=== PATIENT | female | born 2000 | race Two or more races ===

== ENCOUNTER 2025-03-08 12:46 | Emergency (ER) | payer MEDICAID, SELFPAY ==
[2025-03-08 12:47] VITALS: BMI 21.7
[2025-03-08 13:04] VITALS: BP 115/77; PULSE 108; RESP 20; TEMP 37.1; O2SAT 99
[2025-03-08] MEDS: ACETAMINOPHEN 500 MG TABLET 1000 MG PO (13:24)
[2025-03-08] MEDS: ONDANSETRON ODT 4 MG TABRAP PO (13:25)
--- NOTE | 2025-03-08 13:35 | PD.EDFEVER ---
ED Fever RME/HPI General Chief Complaint: Fever Stated Complaint: FEVER, N/V; 11 WKS OB Time Seen by Provider: 03/08/25 13:01 Arrival date/time: 03/08/25 12:46 This is a 24-year-old female that comes into the emergency room with complaints of nausea vomiting and fever. Patient also complains of lower back pain. Patient denies abdominal pain. Patient reports that she is approximately 11 weeks patient denies any urinary symptoms. 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 Patient denies any trauma to her back. Patient denies any vaginal bleeding. Related Data Previous Rx's ?Medication ?Instructions ?Recorded ibuprofen 400 mg tablet 400 mg PO Q6H PRN fever or pain 05/07/19 #30 tabs tramadol 50 mg tablet 50 mg PO BID PRN pain #10 tabs 05/31/22 ondansetron 4 mg disintegrating 4 mg PO Q6H PRN nausea and 03/08/25 tablet vomiting #10 tabs Allergies Allergy/AdvReac Type Severity Reaction Status Date / Time No Known Allergies Allergy Verified 03/08/25 12:50 Review of Systems Review of Systems Systems Reviewed: All systems reviewed, normal except as documented Past Medical History Surgical History OTHER SURGICAL HX: Denies Social History SOCIAL: Denies SMOKING STATUS: Never smoker Past Medical History Comments PMH COMMENT: Denies Physical Exam Narrative Physical exam: VITAL SIGNS: Reviewed. GENERAL APPEARANCE: Alert and interactive, follows commands, no acute distress HEAD AND FACE: Non-traumatic. ENT: PERRL, conjuctiva pink and clear, eyelid no trauma, Mucous membrane moist. NECK: Supple, nontender, no nuchal rigidity. CHEST: No tenderness, no crepitus, no paradoxical movement, no retractions. LUNGS: breathing even and unlabored HEART: Regular rate, cap refill less than 2 seconds ABDOMEN: Soft, nondistended, no guarding, nontender NEUROLOGICAL: Gross motor function intact sensory function intact, Appropriate for age. MUSCULOSKELETAL: low back nontender, full range of motion. no midline tenderness, no meningismus, no step offs EXTREMITIES: No redness no swelling no skin breakdown on bilateral foot and leg. Distal neurovascular status intact bilateral foot SKIN: Color pink, dry Course Quality Measures none Orders Category Date Time Status US OB <= 14 weeks fetus Stat Exams 03/08/25 15:25 Completed Beta HCG,Quantitative Stat Lab 03/08/25 15:40 Completed CBC Stat Lab 03/08/25 15:40 Completed COVID-19 Antigen (In-House) Stat Lab 03/08/25 13:26 Completed Comprehensive Metabolic Panel Stat Lab 03/08/25 15:40 Completed HCG Qualitative,Urine Stat Lab 03/08/25 13:41 Completed Influenza A & B Rapid Panel Stat Lab 03/08/25 13:26 Completed Urinalysis, C/S if Indicated Stat Lab 03/08/25 13:41 Completed Acetaminophen Tab [Tylenol ES Tab] Med 03/08/25 13:16 Discontinued 1,000 mg PO X1 ONE Ondansetron Odt [Zofran Odt] Med 03/08/25 13:15 Discontinued 4 mg PO X1 ONE Vital Signs Vital signs: Vital Signs Temperature 98.7 F 03/08/25 13:04 Pulse Rate 108 H 03/08/25 13:04 Respiratory Rate 20 03/08/25 13:04 Blood Pressure 115/77 03/08/25 13:04 Pulse Oximetry (%) 99 03/08/25 13:04 Oxygen Delivery Method Room Air 03/08/25 13:04 Fever MDM Narrative MDM Narrative:: COVID, flu negative. Patient UA had some red blood cells but no leukocyte esterase patient not having any urinary symptoms. I told patient to follow-up with [facility] for hematuria. I also explained to patient that if she does heavy lifting at work she may need to talk to her primary doctor about possibly going on light duty. Will take her off today and tomorrow. I will prescribe Zofran for nausea. Patient feels comfortable plan of care. Patient told to follow-up with primary provider in 1 to 2 days come back to emergency room if symptoms change or worsen us : Findings: A normal shaped single intrauterine gestation is present in the uterus. CRL 2.4 cm corresponds to 9 weeks 1 day gestational age Cardiac motion 167 bpm Ultrasonographic survey of visible and placental structures unremarkable. Amniotic fluid volume appears appropriate for this estimated gestational age. Ovaries obscured by bowel gas IMPRESSION: Viable intrauterine gestation 9 weeks 1 day. Patient data External records reviewed:: [facility] previous records Clinical information provided by:: patient Social determinants that could affect healthcare access:: none Patient has the following chronic illnesses:: none How is presenting disease/condition affected by chronic disease/condition?: no chronic disease Evaluation data The following diagnostics were reviewed and interpreted by me:: lab results Lab and/or radiology exams considered but not ordered:: none Interpretation Summary: see note Medications / Prescriptions Medications or Prescriptions considered but not ordered:: none Medication administrations:: Medication Administration History Discontinued Medications Acetaminophen (Acetaminophen 500 Mg Tablet) 1,000 mg PO X1 ONE Stop: 03/08/25 13:17 Last Admin: 03/08/25 13:24 Dose: 1,000 mg Documented By: JAYDEN Ondansetron HCl (Ondansetron Odt 4 Mg Tabrap) 4 mg PO X1 ONE; Protocol Stop: 03/08/25 13:16 Last Admin: 03/08/25 13:25 Dose: 4 mg Documented By: JAYDEN see note Consultations Consultation(s) initiated? (list below): No Diagnosis Fever Differential Diagnosis: pyelonephritis, viral infection and other (uti) Most likely diagnosis given after review of the tests above:: see note Admission Indicated Admission indicated?: not indicated Admission Request Was there a request for admission?: No Disposition Plan Disposition Plan: Discharge Discharge Attestation Discharge Attestation: The patient and all family members were given an opportunity to ask questions and understood the discharge instructions. Discharge instructions specifically effects, indications for sooner follow up or return to the emergency department, and the expected course of current diagnosis. Patient condition: Stable Discharge Plan Plan Patient Disposition: HOME (Self Care) Patient condition on transfer: Stable Prescriptions/Referrals Prescriptions/Med Rec: New ondansetron 4 mg tablet,disintegrating 4 mg PO Q6H PRN (Reason: nausea and vomiting) Qty: 10 0RF No Action ibuprofen 400 mg tablet 400 mg PO Q6H PRN (Reason: fever or pain) Qty: 30 0RF tramadol 50 mg tablet 50 mg PO BID PRN (Reason: pain) Qty: 10 0RF Referrals: Bora Street MD [Primary Care Provider, Family Practice] - In 1 week Problem List Clinical Impression: URI (upper respiratory infection), Vomiting, Back pain, 9 weeks gestation of Patient/Caregiver Discharge Instructions Discharge Activity: activity as tolerated Education Materials: Self-Care for Low Back Pain, ED Vomiting (Adult) Additional Instructions: Follow up with primary provider in 1-2 days. Come back to ED if symptoms change or worsen Print Language: Estonian Stand Alone Forms: Shereen Fierro Info., Work/School Release, Patient Portal Info Letter PA/[employer]IE[employer]ENANT [employer] Supervising Physician PA/LIEUTENANT FIREFIGHTER Supervising Physician: darlene
[2025-03-08 13:50] LABS: Collection Type, Urine Voided
[2025-03-08 13:51] LABS: COVID-19 Antigen (In-House) Negative (Negative)
[2025-03-08 13:54] LABS: Influenza A Ag Negative; Influenza B Ag Negative
[2025-03-08 13:58] LABS: HCG Qualitative,Urine Positive
[2025-03-08 14:02] LABS: Amorphous Crystals,Urine Present (Absent); Bilirubin,Urine Negative (Negative); Blood,Urine Negative (Negative); Clarity,Urine Turbid (Clear/Hazy); Color,Urine Yellow (Lt Yel-Yel); Culture Indicated,Urine Not Indicated; Glucose, Urine Negative (Negative); Ketones,Urine 4+ (Negative); Leukocyte Esterase,Urine Negative (Negative); Nitrite,Urine Negative (Negative); PH,Urine 8.0 (5.0-7.0); Protein,Urine 1+ (Neg - Trace); RBC,Urine 5 /hpf (0-3); Specific Gravity,Urine 1.027 (1.001-1.035); Squamous Epithelial Cell,Urine 14 /hpf (0-5); Urobilinogen,Urine Negative mg/dL (0.0-1.0); WBC,Urine 1 /hpf (0-5)
--- NOTE | 2025-03-08 15:25 | XR_ITS ---
Examination: Complete OB ultrasound, less than 14 weeks, transabdominal Date and time of exam: March 08, 2025, 1622 hours INDICATIONS: Pelvic pain beginning several months ago Technique: Obstetrical ultrasound images less than 14 weeks performed via transabdominal imaging Findings: A normal shaped single intrauterine gestation is present in the uterus. CRL 2.4 cm corresponds to 9 weeks 1 day gestational age Cardiac motion 167 bpm Ultrasonographic survey of visible and placental structures unremarkable. Amniotic fluid volume appears appropriate for this estimated gestational age. Ovaries obscured by bowel gas IMPRESSION: Viable intrauterine gestation 9 weeks 1 day.
[2025-03-08 15:52] LABS: Basophils # (Auto) 0.0 Thou/mm3 (0.0-0.2); Basophils % (Auto) 0 % (0-2.5); Eosinophils # (Auto) 0.0 Thou/mm3 (0.0-0.5); Eosinophils % (Auto) 0 % (0-10); Hematocrit 37.7 % (36.0-46.0); Hemoglobin 12.7 g/dL (12.0-16.0); Immature Granulocytes Auto 0.04 Thou/mm3 (0.00-0.00); Lymphocytes # (Auto) 0.6 Thou/mm3 (1.0-4.8); Lymphocytes % (Auto) 6 % (10-50); Mean Corpuscular HGB Conc 33.7 g/dl (31.0-37.0); Mean Corpuscular Hemoglobin 28.0 pg (25.0-35.0); Mean Corpuscular Volume 83 fL (80-100); Monocytes # (Auto) 1.1 Thou/mm3 (0.0-0.8); Monocytes % (Auto) 12 % (0-12); Neutrophils # (Auto) 7.4 Thou/mm3 (1.8-7.7); Neutrophils % (Auto) 81 % (37-80); Nucleated Red Blood Cell # 0.00 Thou/mm3 (0.00-0.00); Nucleated Red Blood Cell % 0 /100 WBC (0); Platelet Count 213 Thou/mm3 (140-440); RDW Standard Deviation 38.4 fL (36.4-46.3); Red Blood Count 4.53 Miln/mm3 (4.00-5.20); White Blood Count 9.2 Thou/mm3 (3.6-11.0)
[2025-03-08 16:24] LABS: Alanine Aminotransferase 14 U/L (10-49); Albumin, Serum 5.1 gm/dL (3.5-5.0); Albumin/Globulin Ratio 2.0 (1.2-2.2); Alkaline Phosphatase 41 U/L (46-116); Anion Gap 10 (7-16); Aspartate Amino Transferase 20 U/L (0-34); BUN/Creatinine Ratio 8 Ratio (12-20); Bilirubin,Total 0.4 mg/dL (0.3-1.2); Blood Urea Nitrogen < 5 mg/dL (9-23); Calcium 9.6 mg/dL (8.3-10.6); Calcium (Corrected) 9.6 mg/dL (8.5-10.1); Carbon Dioxide 22.2 mMol/L (20.0-31.0); Chloride 105 mMol/L (98-107); Creatinine (Component) 0.6 mg/dL (0.6-1.3); Estimated Creatinine Clearance 111.0 mL/min (>60); Globulin 2.6 gm/dL (2.3-3.5); Glucose 91 mg/dL (74-106); Osmolality,Calculated 271 (275-295); Potassium 3.7 mMol/L (3.4-5.1); Sodium 137 mMol/L (136-145); Total Protein 7.7 gm/dL (5.7-8.2); eGFR > 60 See Note
== END 2025-03-08 19:13 | disposition home or self-care (01) ==
PROVIDERS: Nurse Practitioner Family; Emergency Provider Emergency Medicine; PCP Family Medicine
DX: O99.511 Diseases of the respiratory system complicating pregnancy, first trimester (principal); J06.9 Acute upper respiratory infection, unspecified; O21.9 Vomiting of pregnancy, unspecified; O99.891 Other specified diseases and conditions complicating pregnancy; R10.20 Pelvic and perineal pain unspecified side; M54.50 Low back pain, unspecified; Z3A.09 9 weeks gestation of pregnancy
CPT/HCPCS: 36415; 76801; 80053; 81001; 81025; 84702; 85025; 87502; 87811; 99283; Q0162; A9270